=== PATIENT | female | born 1965 | race Caucasian/White ===

== ENCOUNTER 2018-01-27 13:41 | Emergency (ER) | payer OTHER ==
[2018-01-27 13:46] VITALS: TEMP 97.7; BMI 32.8
[2018-01-27] MEDS ORDERED: SODIUM CHLORIDE 0.9% 1000 ML INFUS.BAG IV ONE (14:38)
[2018-01-27] MEDS ORDERED: MAG HYDROX/AL HYDROX/SIMETH 30 ML UNIT-DOSE CUP PO ONE (14:38)
[2018-01-27] MEDS ORDERED: FAMOTIDINE 20 MG/50 ML IVPB 20 MG/50 ML MG IVPB ONE ×2 (14:38→15:00)
--- NOTE | 2018-01-27 14:38 | PDOC ---
History of Present Illness - General Chief Complaint: Pain Stated Complaint: REVISIT, ABD PAIN Time Seen by Provider: 01/27/18 14:27 History Source: Patient Exam Limitations: No Limitations - History of Present Illness Initial Comments: 01/27/18 14:35 The patient is a 52F with a PMH of HLD, HTN, asthma, and fibromyalgia who presents to the ER with complaints of epigastric pain. The patient states that her pain started 1 week ago and has been constant, does not radiate, sharp in nature, and worsened with foods. She denies any nausea, vomiting, fever, chills , CP, SOB. She denies vaginal bleeding, d/c, diarrhea, constipation. No previous abdominal surgeries. Last BM this morning and it was normal. Past History - Past Medical History Allergies/Adverse Reactions: Allergies Allergy/AdvReac Type Severity Reaction Status Date / Time No Known Allergies Allergy Verified 01/27/18 13:46 Home Medications: Ambulatory Orders Famotidine [Pepcid] 40 mg PO DAILY PRN #20 tablet 01/23/18 Mag Hydrox/Al Hydrox/Simeth [Mylanta Suspension -] 30 ml PO Q6H PRN #1 bottle Polyethylene Glycol 3350 [Miralax (For Daily Use) -] 17 gm PO ONCE #1 bottle 04/06 COPD: No HTN: Yes Thyroid Disease: Yes (hypo) Other medical history: fibromyalgia - Suicide/Smoking/Psychosocial Hx Smoking History: Never smoked Have you smoked in the past 12 months: No Information on smoking cessation initiated: No Hx Alcohol Use: No Drug/Substance Use Hx: No Substance Use Type: None Review of Systems - Review of Systems Able to Perform ROS?: Yes Comments:: 01/27/18 14:50 GENERAL/CONSTITUTIONAL: No fever or chills. No weakness. HEAD, EYES, EARS, NOSE AND THROAT: No change in vision. No ear pain or discharge. No sore throat. CARDIOVASCULAR: No chest pain, palpitations, or lightheadedness. RESPIRATORY: No cough, wheezing, shortness of breath, or hemoptysis. GASTROINTESTINAL: Positive for abdominal pain. No nausea, vomiting, diarrhea, or constipation. GENITOURINARY: No dysuria, frequency, hematuria, or change in urination. MUSCULOSKELETAL: No joint or muscle swelling or pain. No neck or back pain. SKIN: No rash or lesions. NEUROLOGIC: No headache, numbness, tingling, weakness, loss of consciousness, or change in strength/sensation. ENDOCRINE: No increased thirst. No abnormal weight change. HEMATOLOGIC/LYMPHATIC: No anemia, easy bleeding, or history of blood clots. ALLERGIC/IMMUNOLOGIC: No hives or skin allergy. Is the patient limited [place]ian proficient: No *Physical Exam - Vital Signs Last Vital Signs Temp Pulse Resp BP Pulse Ox 97.7 F 75 18 128/86 97 01/27/18 13:43 01/27/18 13:43 01/27/18 13:43 01/27/18 13:43 01/27/18 13:43 - Physical Exam Comments: 01/27/18 14:51 GENERAL: Well developed, well nourished. Awake and alert. No acute distress. HEENT: Normocephalic, atraumatic. Hearing grossly normal. Moist mucous membranes. PERRLA, EOMI. No conjunctival pallor. Sclera are non-icteric. NECK: Supple. Full ROM. No JVD. CARDIOVASCULAR: Regular rate and rhythm. No murmurs, rubs, or gallops. PULMONARY: No evidence of respiratory distress. Lungs clear to auscultation bilaterally. No wheezing, rales or rhonchi. ABDOMINAL: Soft. Tenderness to deep palpation in epigastrium. Non-distended. No rebound or guarding. GENITOURINARY: No CVA tenderness bilaterally. MUSCULOSKELETAL: Normal range of motion at all joints. No bony deformities or tenderness. EXTREMITIES: No cyanosis. No clubbing. No edema. No calf tenderness. SKIN: Warm and dry. Normal capillary refill. No rashes. No jaundice. NEUROLOGICAL: Alert, awake, appropriate. Cranial nerves 2-12 intact. Normal speech. Gait is normal without ataxia. PSYCHIATRIC: Cooperative. Good eye contact. Appropriate mood and affect. ED Treatment Course - LABORATORY CBC & Chemistry Diagram: 01/27/18 14:50 01/27/18 14:50 - RADIOLOGY Radiology Studies Ordered: Category Date Time Status ABDOMEN US -LIMITED [US] Stat Ultrasound 01/27/18 14:35 Ordered Medical Decision Making - Medical Decision Making 01/27/18 14:51 The patient is a 52F with a PMH of HLD, HTN, asthma, and fibromyalgia who presents with worsening epigastric pain. She was seen in our facility on 01/23/18 and had a CTAP done which was negative for acute pathology. Pending U/S of RUQ and lipase. 01/27/18 16:36 Lipase and RUQ U/S negative. Pt likely has gastritis. Pt feels slightly better with pepcid and maalox. Will order protonix and reevaluate. 01/27/18 18:02 Pt is comfortable and ready for d/c. *DC/Admit/Observation/Transfer Diagnosis at time of Disposition: Gastritis Qualifiers: Gastritis type: unspecified gastritis Chronicity: chronic Gastritis bleeding: without bleeding Qualified Code(s): K29.50 - Unspecified chronic gastritis without bleeding - Discharge Dispostion Disposition: HOME Condition at time of disposition: Stable Admit: No - Referrals Referrals: Aman Daniels MD [Primary Care Provider] - - Patient Instructions Printed Discharge Instructions: Gastritis Additional Instructions: Please take pepcid 20mg twice daily for 10 days in addition to the protonix then continue with the protonix. Avoid dairy, spicy and fatty foods, and caffeine and alcohol. Please return to the ER if you have any signs or symptoms of chest pain, shortness of breath, uncontrollable fever, chills, nausea, vomiting, numbness, tingling, or weakness in any part of your body, changes in vision, or slurred speech. Please follow up with your primary care physician in 2-3 days. Please return to the ER if symptoms persist, worsen, or new symptoms arise. - Post Discharge Activity
[2018-01-27] MEDS ORDERED: MAG HYDROX/AL HYDROX/SIMETH 30 ML UNIT-DOSE CUP ONE (14:59)
[2018-01-27 15:06] LABS: BASO % 0.7 % (0-2.0); HEMATOCRIT 41.5 % (32.4-45.2); LYMPH % 24.1 % (8-40); MCH 29.4 pg (25.7-33.7); MCHC 33.8 g/dl (32.0-36.0); MEAN CELL VOLUME 86.9 fl (80-96); MEAN PLT VOLUME 10.9 fl (7.5-11.1); NEUT % 65.2 % (42.8-82.8); PLATELET COUNT 170 K/MM3 (134-434); RBC 4.77 M/mm3 (3.60-5.2); RDW 13.2 % (11.6-15.6); WHITE BLOOD COUNT 8.1 K/mm3 (4.0-10.0)
--- NOTE | 2018-01-27 15:08 | PDOC ---
Attending Attestation - Resident Resident Name: Edson Hopper - ED Attending Attestation I have performed the following: I have examined & evaluated the patient, The case was reviewed & discussed with the resident, I agree w/resident's findings & plan - HPI HPI: 01/27/18 15:05 52-year-old female second visit for epigastric discomfort and heartburn. Patient had about one week of persistent and mild epigastric burning worsened with meals and not associated with any other complaints. She was seen here on 01/23 and had labs and CAT scan that were unremarkable and was discharged to follow- up with her PMD, who started her on pantoprazole and Maalox but without relief. Patient presents now with persistent pain of increased severity requesting evaluation. No abdominal surgical history, no cardiopulmonary complaints, no fevers or chills. No vomiting or diarrhea, no constipation. Patient has been noncompliant with diet, eating dairy/cheese. Not on any antihistamines. Denies any excessive alcohol or NSAID use. - Physicial Exam PE: 01/27/18 15:07 Vital signs stable No jaundice or pallor Speaking full sentences Epigastric discomfort to palpation without guarding or rebound, abdomen is otherwise soft/nontender/nondistended - Medical Decision Making 01/27/18 15:07 Patient seen and evaluated with the resident. I agree with the overall evaluation, assessment, and management with the following summary of visit: 52-year-old female with epigastric discomfort and no peritoneal findings, presentation seems most consistent with dyspepsia and GERD, rule out biliary or pancreatic etiology. Labs including lipase Right upper quadrant ultrasound here and CAT scan already unremarkable and 01/23. Maalox and Pepcid Reassess. If above is within normal limits, we'll reassure and discharge adding Pepcid and GI follow-up.
[2018-01-27 15:32] LABS: ALBUMIN 3.9 g/dl (3.4-5.0); ALK PHOS 104 U/L (45-117); ANION GAP 9 (8-16); BILIRUBIN,TOTAL 0.9 mg/dL (0.2-1.0); BLOOD UREA NITROGEN 24 mg/dL (7-18); CALCIUM 9.4 mg/dL (8.5-10.1); CHLORIDE 105 mmol/L (98-107); CO2 27 mmol/L (21-32); CREATININE 0.7 mg/dL (0.55-1.02); GLUCOSE,RANDOM 85 mg/dL (74-106); LIPASE 188 U/L (73-393); POTASSIUM 4.6 mmol/L (3.5-5.1); SGOT/AST 23 U/L (15-37); SGPT/ALT 45 U/L (12-78); SODIUM 141 mmol/L (136-145); TOT PROT 7.4 g/dl (6.4-8.2)
[2018-01-27 16:29] LABS: URINE APPEARANCE CLEAR; URINE BILIRUBIN NEGATIVE (<2.0 mg/dL); URINE BLOOD NEGATIVE (NEGATIVE); URINE COLOR LTYELLOW; URINE GLUCOSE (UA) NEGATIVE (NEGATIVE); URINE KETONE NEGATIVE (NEGATIVE); URINE LEUK ESTERASE NEGATIVE (NEGATIVE); URINE NITRITE NEGATIVE (NEGATIVE); URINE PROTEIN NEGATIVE (NEGATIVE); URINE UROBILINOGEN NEGATIVE mg/dL (0.2-1.0)
[2018-01-27] MEDS ORDERED: PANTOPRAZOLE SODIUM 40 MG in SODIUM CHLORIDE 100 ML IVPB ONE (16:36)
[2018-01-27] MEDS ORDERED: PANTOPRAZOLE SODIUM 40 MG/100 ML BAG IVPB ONE (17:02)
[2018-01-27 18:14] VITALS: BP 128/72; PULSE 64
== END 2018-01-27 18:25 | disposition home or self-care (01) ==
LOC: JER 13:41
PROC: 3E033GC Introduction of Other Therapeutic Substance into Peripheral Vein, Percutaneous Approach (ICD-10-PCS; principal; 2018-01-27)
PROC: 3E033GC Introduction of Other Therapeutic Substance into Peripheral Vein, Percutaneous Approach (ICD-10-PCS; 2018-01-27)
DX: K29.50 Unspecified chronic gastritis without bleeding (principal); I10 Essential (primary) hypertension; E78.00 Pure hypercholesterolemia, unspecified; E03.9 Hypothyroidism, unspecified; J45.909 Unspecified asthma, uncomplicated; M79.7 Fibromyalgia
CPT/HCPCS: 36415; 76705-TC; 80053; 81003; 83690; 85025; 96365; 96367; 99282-25; J7030